=== PATIENT | female | born 1990 | race Hispanic/Latino ===

== ENCOUNTER 2017-09-17 11:59 | Emergency (ER) | payer OTHER ==
[2017-09-17] MEDS ORDERED: OCTYL 2-CYANOACRYLATE 1 EACH TP ONE (12:33)
[2017-09-17] MEDS ORDERED: CEFTRIAXONE SODIUM 1 GM ONE (12:41)
[2017-09-17] MEDS ORDERED: LIDOCAINE HCL-MPF 1% 2ML VIAL ONE (12:41)
[2017-09-17] MEDS ORDERED: ACETAMINOPHEN-CODEINE ELIXIR 5 ML UDCUP ONE (12:42)
== END 2017-09-17 13:00 | disposition home or self-care (01) ==
LOC: EDH 11:59
DX: S81.812A Laceration without foreign body, left lower leg, initial encounter (principal); S43.402A Unspecified sprain of left shoulder joint, initial encounter; S80.11XA Contusion of right lower leg, initial encounter; S60.512A Abrasion of left hand, initial encounter; V49.88XA Car occupant (driver) (passenger) injured in other specified transport accidents, initial encounter; Y93.89 Activity, other specified; Y92.89 Other specified places as the place of occurrence of the external cause; Y99.8 Other external cause status
CPT/HCPCS: 12031; 73590; 93005; 96372; 99284; J0696; J3490

== ENCOUNTER 2017-09-28 14:54 | Emergency (ER) | payer OTHER | END 2017-09-28 16:03 | disposition home or self-care (01) | LOC: EDH 14:54 | DX: S81.812D Laceration without foreign body, left lower leg, subsequent encounter (principal); X58.XXXD Exposure to other specified factors, subsequent encounter | CPT/HCPCS: 99281 ==